=== PATIENT | female | born 1980 | race Caucasian/White ===

== ENCOUNTER 2020-01-21 15:27 | Emergency (ER) | payer BC, OTHER ==
[2020-01-21 16:34] LABS: Absolute Lymphocytes (CBC) 2.1 K/uL (0.7-4.9); Basophils % 1.1 % (0-1.3); Hematocrit 42.2 % (36.0-45.0); Lymphocytes % 22.5 % (15.3-44.8); MPV 8.2 fL (7.6-11.3); RBC Red Blood Cell Count 5.19 M/uL (3.86-4.86)
[2020-01-21 16:43] LABS: Urine Blood 3+ (NEG); Urine Glucose TRACE (NEG); Urine Protein 3+ (NEG); Urine Specific Gravity 1.015 (1.005-1.030); Urine pH 5.5 (5.0-7.0)
[2020-01-21] MEDS ORDERED: NA CHLORIDE 0.9% 1,000 ML ONE (17:03)
[2020-01-21 17:09] LABS: Potassium 3.7 mmol/L (3.5-5.1)
--- NOTE | 2020-01-21 17:59 | ER ---
Nurse's Notes [facility] Name: Hailee More Age: 39 yrs Sex: Female : 1980 Arrival Date: 01/21/2020 Time: 15:28 Bed 7 Private MD: Diagnosis: Threatened Presentation: 01/20 15:35 Chief complaint: Patient states: vaginal bleeding with clots started about 1430 today, sv pt is 10 weeks . Coronavirus screen: Client denies travel out of the [place] in the last 14 days. At this time, the client does not indicate any symptoms associated with coronavirus-19. Ebola Screen: No symptoms or risks identified at this time. Risk Assessment: Do you want to hurt yourself or someone else? Patient reports no desire to harm self or others. Onset of symptoms was January 21, 2020. 15:35 Method Of Arrival: Wheelchair sv 15:35 Acuity: SIOM[place] 3 sv 16:27 Initial Sepsis Screen: Does the patient meet any 2 criteria? No. Patient's initial ph sepsis screen is negative. Does the patient have a suspected source of infection? No. Patient's initial sepsis screen is negative. PATIENT SAFETY TECH: 17:54 3, 1, Living 1, LMP 10/08/2019 kb Historical: - Allergies: 15:36 No Known Allergies; sv - PMHx: 15:36 Diabetes - NIDDM; sv - PSHx: 15:36 Appendectomy; sv 15:36 Knee surgery; sv - Immunization history:: Flu vaccine is not up to date. - Social history:: Smoking status: Patient denies any tobacco usage or history of. Screenin:37 Abuse screen: Denies threats or abuse. Nutritional screening: No deficits noted. tw2 Tuberculosis screening: No symptoms or risk factors identified. Fall Risk None identified. Assessment: 16:25 General: Appears in no apparent distress. comfortable, obese, well groomed, Behavior is ph calm, cooperative, appropriate for age, Denies fever, feeling ill. Pain: Denies pain. Neuro: Level of Consciousness is awake, alert, obeys commands, Oriented to person, place, time, situation. Cardiovascular: Capillary refill < 3 seconds in bilateral fingers Patient's skin is warm and dry. Respiratory: Airway is patent Respiratory effort is even, unlabored, Respiratory pattern is regular, symmetrical. GI: Patient currently denies abdominal pain, nausea, vomiting. : Reports vaginal bleeding that is with clots, heavy flow. Derm: Skin is intact, is healthy with good turgor, Skin is pink, warm \T\ dry. Musculoskeletal: Circulation, motion, and sensation intact. Range of motion: intact in all extremities. 17:40 Reassessment: Patient appears in no apparent distress at this time. No changes from tw2 previously documented assessment. Patient and/or family updated on plan of care and expected duration. Pain level reassessed. Patient is alert, oriented x 3, equal unlabored respirations, skin warm/dry/pink. US at bedside at this time. 18:01 Reassessment: provider at bedside at this time with results. tw2 18:42 Reassessment: Patient appears in no apparent distress at this time. No changes from tw2 previously documented assessment. Patient and/or family updated on plan of care and expected duration. Pain level reassessed. Patient is alert, oriented x 3, equal unlabored respirations, skin warm/dry/pink. printed results given to pt at this time by provider. Vital Signs: 15:35 Weight 136.08 kg; Height 5 ft. 3 in. (160.02 cm); Pain 0/10; sv 15:59 BP 172 / 103; Pulse 101; Resp 18; Pulse Ox 98% on R/A; tw2 16:00 Temp 97.9(TE); tw2 17:01 BP 161 / 118; Pulse 108; Resp 18; Pulse Ox 99% on R/A; tw2 17:37 BP 156 / 99; Pulse 109; Resp 17; Pulse Ox 99% on R/A; tw2 15:35 Body Mass Index 53.14 (136.08 kg, 160.02 cm) sv ED Course: 15:28 Patient arrived in ED. as 15:32 Ludmila Ulrich FNP-C [facility]. kb 15:32 Pierre Crook MD is Attending Physician. kb 15:36 Triage completed. sv 15:36 Elizabeth Boudreaux RN is Primary Nurse. tw2 15:36 Arm band placed on. sv 15:38 Patient has correct armband on for positive identification. Placed in gown. Bed in low mh5 position. Call light in reach. Side rails up X 1. Adult w/ patient. Warm blanket given. Pulse ox on. NIBP on. 16:19 Urine collected: clean catch specimen, blood tinged. mh5 16:20 Initial lab(s) drawn, by me, sent to lab. Inserted saline lock: 22 gauge in right ph antecubital area, using aseptic technique. Blood collected. 18:04 Awaiting: US report PRIOR to discharge. tw2 18:08 US Transvaginal Ob In Process Unspecified. EDMS 18:42 No provider procedures requiring assistance completed. IV discontinued, intact, tw2 bleeding controlled, No redness/swelling at site. Pressure dressing applied. Administered Medications: 16:52 Drug: NS 0.9% 1000 ml Route: IV; Rate: 1000 ml; Site: right antecubital; tw2 18:42 Follow up: Response: No adverse reaction; IV Status: Order to discontinue infusion; IV tw2 Intake: 700ml Intake: 18:42 IV: 700ml; Total: 700ml. tw2 Outcome: 17:59 Discharge ordered by . sathya 18:42 Discharged to home ambulatory, with significant other. tw2 18:42 Condition: stable 18:42 Discharge instructions given to patient, significant other, Instructed on discharge instructions, follow up and referral plans. Demonstrated understanding of instructions, follow-up care. 18:43 Patient left the ED. tw2 Signatures: Dispatcher [employer] Ludmila Morataya, LISA DASILVAP-Huma Álvarez, RN Julissa Cifuentes Patricia, RN RN ph Wise, Tara, RN RN [facility] Julianna Duarte [facility]
--- NOTE | 2020-01-21 17:59 | EDPHYS ---
Physician Documentation [facility] Name: Hailee More Age: 39 yrs Sex: Female : 1980 Arrival Date: 01/21/2020 Time: 15:28 Bed 7 Private MD: ED Physician Pierre Crook HPI: 01/20 17:54 This 39 yrs old Female presents to ER via Wheelchair with complaints of kb Vaginal Bleeding, + Preg <12wks. 17:54 The patient presents to the emergency department with abdominal pain, of the suprapubic kb area, that started today, described as crampy, intermittent, vaginal bleeding, that is light, with clots. The estimated gestational age is 10 weeks. course: care: private OB physician, Leakage of Fluid: none appreciated, Ultrasound: the patient had an ultrasound, which was normal. Previous pregnancies: in previous pregnancies patient has had. Associated signs and symptoms: Pertinent positives: abdominal pain, vaginal bleeding. The patient has not experienced similar symptoms in the past. The patient has not recently seen a physician. 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 - Social history:: Smoking status: Patient denies any tobacco usage or history of. ROS: 17:53 Constitutional: Negative for fever, chills, and weight loss, Cardiovascular: Negative kb for chest pain, palpitations, and edema, Respiratory: Negative for shortness of breath, cough, wheezing, and pleuritic chest pain, Back: Negative for injury and pain, MS/Extremity: Negative for injury and deformity, Skin: Negative for injury, rash, and discoloration, Neuro: Negative for headache, weakness, numbness, tingling, and seizure. 17:53 Abdomen/GI: Positive for abdominal cramps, Negative for abdominal pain, nausea, vomiting, and diarrhea. 17:53 : Positive for vaginal bleeding. Exam: 17:54 Constitutional: This is a well developed, well nourished patient who is awake, alert, kb and in no acute distress. Head/Face: Normocephalic, atraumatic. Chest/axilla: Normal chest wall appearance and motion. Nontender with no deformity. No lesions are appreciated. Cardiovascular: Regular rate and rhythm with a normal S1 and S2. No gallops, murmurs, or rubs. Normal PMI, no JVD. No pulse deficits. Respiratory: Lungs have equal breath sounds bilaterally, clear to auscultation and percussion. No rales, rhonchi or wheezes noted. No increased work of breathing, no retractions or nasal flaring. Abdomen/GI: Soft, non-tender, with normal bowel sounds. No distension or tympany. No guarding or rebound. No evidence of tenderness throughout. Skin: Warm, dry with normal turgor. Normal color with no rashes, no lesions, and no evidence of cellulitis. MS/ Extremity: Pulses equal, no cyanosis. Neurovascular intact. Full, normal range of motion. Neuro: Awake and alert, GCS 15, oriented to person, place, time, and situation. Cranial nerves II-XII grossly intact. Motor strength 5/5 in all extremities. Sensory grossly intact. Cerebellar exam normal. Normal gait. Vital Signs: 15:35 Weight 136.08 kg; Height 5 ft. 3 in. (160.02 cm); Pain 0/10; sv 15:59 BP 172 / 103; Pulse 101; Resp 18; Pulse Ox 98% on R/A; tw2 16:00 Temp 97.9(TE); tw2 17:01 BP 161 / 118; Pulse 108; Resp 18; Pulse Ox 99% on R/A; tw2 17:37 BP 156 / 99; Pulse 109; Resp 17; Pulse Ox 99% on R/A; tw2 15:35 Body Mass Index 53.14 (136.08 kg, 160.02 cm) sv MDM: 15:35 Patient medically screened. kb 17:54 Data reviewed: vital signs, nurses notes. Data interpreted: Pulse oximetry: on room air kb is 99 %. Interpretation: normal. Counseling: I had a detailed discussion with the patient and/or guardian regarding: the historical points, exam findings, and any diagnostic results supporting the discharge/admit diagnosis, lab results, radiology results, the need for outpatient follow up, an OB/Gyne specialist, to return to the emergency department if symptoms worsen or persist or if there are any questions or concerns that arise at home. 01/20 15:42 Order name: Quantitative Hcg; Complete Time: 17:09 kb 01/20 15:42 Order name: Abo/rh Typing; Complete Time: 17:32 kb 01/20 15:42 Order name: Basic Metabolic Panel; Complete Time: 17:09 kb 01/20 15:42 Order name: CBC with Diff; Complete Time: 17:00 kb 01/20 16:20 Order name: Urine Dipstick--Ancillary (enter results); Complete Time: 16:43 em1 01/20 16:20 Order name: Urine --Ancillary (enter results); Complete Time: 16:43 em1 01/20 15:42 Order name: Urine Test (obtain specimen); Complete Time: 16:18 kb 01/20 15:42 Order name: IV Saline Lock; Complete Time: 16:24 kb 01/20 15:42 Order name: Labs collected and sent; Complete Time: 16:24 kb 01/20 15:42 Order name: NPO; Complete Time: 16:24 kb 01/20 15:42 Order name: Urine Dipstick-Ancillary (obtain specimen); Complete Time: 16:18 kb 01/20 16:44 Order name: US Transvaginal Ob; Complete Time: 18:36 kb Administered Medications: 16:52 Drug: NS 0.9% 1000 ml Route: IV; Rate: 1000 ml; Site: right antecubital; tw2 18:42 Follow up: Response: No adverse reaction; IV Status: Order to discontinue infusion; IV tw2 Intake: 700ml Disposition: 01/21 11:53 Co-signature as Attending Physician, Pierre Crook MD I agree with the assessment and avtar plan of care. Disposition: 01/21/20 17:59 Discharged to Home. Impression: Threatened . - Condition is Stable. - Discharge Instructions: Vaginal Bleeding During , First Trimester, Threatened Miscarriage, [id number], Pelvic Rest. - Medication Reconciliation Form, Thank You Letter, Antibiotic Education, Prescription Opioid Use form. - Follow up: Emergency Department; When: As needed; Reason: Worsening of condition. Follow up: Private Physician; When: 2 - 3 days; Reason: Recheck today's complaints, Continuance of care, Re-evaluation by your physician. Signatures: Dispatcher [employer] ED Joe Ulrichistin, GEOTHERMAL INSTALLER-C GEOTHERMAL INSTALLER-Ckb Huma Veras, RN RN Pierre Peralta MD MD cha Wise, Tara, RN RN tw2 Corrections: (The following items were deleted from the chart) 01/20 18:43 17:59 01/21/2020 17:59 Discharged to Home. Impression: Threatened . Condition tw2 is Stable. Forms are Medication Reconciliation Form, Thank You Letter, Antibiotic Education, Prescription Opioid Use. Follow up: Emergency Department; When: As needed; Reason: Worsening of condition. Follow up: Private Physician; When: 2 - 3 days; Reason: Recheck today's complaints, Continuance of care, Re-evaluation by your physician. kb
--- NOTE | 2020-01-21 18:27 | RAD REPORT ---
EXAM DESCRIPTION: US - Transvaginal OB - 01/21/2020 6:07 pm CLINICAL HISTORY: with pelvic pain and vaginal bleeding COMPARISON: None. FINDINGS: The uterus measures 12 x 7 x 7 centimeters. A normal appearing gestational sac is present within the endometrium. Within this is a yolk sac and pole with a crown-rump length 3.1 centimeters. Card iac activity 173 beats per minute 5 centimeter isoechoic structure abuts the anterior uterine wall Right ovary normal in size and echotexture. Left ovary not seen secondary to overlying bowel gas. .Ri ght and left adnexa unremarkable. IMPRESSION: Single live intrauterine with an estimated gestational age 9 weeks 5 days ADOLFO 08/20/2020 5 centimeter isoechoic structure abuts the anterior uterine wall. This probably either represents a f ibroid or myometrial contraction. A bleed can also have this appearance. It is recommended that the p atient a follow up ultrasound in 1 week for re-evaluation
[2020-01-23 19:24] VITALS: TEMP 97.9
[2020-01-23 19:26] VITALS: O2SAT 99
[2020-01-23 19:27] VITALS: BP 156/99
== END 2020-01-21 18:43 | disposition home or self-care (01) ==
LOC: ER 15:27
DX: O20.0 Threatened abortion (principal); Z3A.09 9 weeks gestation of pregnancy
CPT/HCPCS: 96361; 85025; 80048; 36415; 86900; 81025; 86901; 84702; 81003; 76817; 96360; 99284; J7030